=== PATIENT | female | born 1945 | race Caucasian/White ===

== ENCOUNTER 2025-04-08 08:50 | Outpatient (CLI) | payer MEDICARE, OTHER ==
--- NOTE | 2025-04-08 11:07 | RADIOLOGY REPORT ---
PROCEDURE: MR MRI LUMBAR SPINE INDICATION: OTHER SPONDYLOSIS WITH RADICULOPATHY, LUMBOSACRAL REGION Exam Date: 04/08/2025 09:44 AM COMPARISON: None TECHNIQUE: MRI lumbar spine without intravenous contrast. FINDINGS: Grade 1 anterolisthesis of L4 on L5. Acute/subacute superior endplate compression deformity of L4. No significant retropulsion of fracture fragments into the canal. Subacute to chronic inferior endpla te compression fracture of L2 and superior endplate compression fracture L3. Chronic compression defo rmity of L1. There are degenerative endplate changes including modic endplate changes with anterior a nd lateral osteophytes throughout the lumbar spine. The visualized distal spinal cord and conus medul nicho are within normal limits. The conus medullaris appears to terminate within normal limits. The visualized retroperitoneal and paraspinal soft tissues are unremarkable. The following axial levels are detailed below: T12-L1: There is a mild circumferential disc bulge. No significant central canal or neuroforaminal s tenosis. L1-L2: There is a mild circumferential disc bulge. No significant central canal or neuroforaminal s tenosis. L2-L3: There is a severe circumferential disc bulge complicated by facet arthropathy narrowing the central canal to 8 mm with associated moderate bilateral neuroforaminal stenosis. L3-L4: There is a mild circumferential disc bulge narrowing the central canal to 8 mm. No significa nt neuroforaminal stenosis. L4-L5: There is a severe circumferential disc bulge complicated by facet arthropathy narrowing the central canal to 4 mm with associated moderate bilateral neuroforaminal stenosis. L5-S1: Unremarkable. IMPRESSION: 1. Acute/subacute superior endplate compression fracture of L4. Subacute to chronic compression frac tures of L2 and L3. Chronic compression deformity of L1. Clinical correlation and continued follow-u p is recommended. 2. Multilevel degenerative disease. Grade 1 anterolisthesis of L4 on L5 contributes to severe central canal stenosis. Moderate central canal stenosis L2-3 and L3-4. Neural foraminal stenosis as above. HS:Y
== END 2025-04-08 23:59 | disposition home or self-care (01) ==
LOC: MRI02 08:50
PROVIDERS: ATTEND Specialist
DX: S32.020A Wedge compression fracture of second lumbar vertebra, initial encounter for closed fracture (principal); S32.030A Wedge compression fracture of third lumbar vertebra, initial encounter for closed fracture; S32.040A Wedge compression fracture of fourth lumbar vertebra, initial encounter for closed fracture; M47.27 Other spondylosis with radiculopathy, lumbosacral region; M47.897 Other spondylosis, lumbosacral region; M51.16 Intervertebral disc disorders with radiculopathy, lumbar region; X58.XXXA Exposure to other specified factors, initial encounter; Y93.9 Activity, unspecified; Y92.89 Other specified places as the place of occurrence of the external cause; Y99.8 Other external cause status
CPT/HCPCS: 72148